=== PATIENT | female | born 1980 | race Two or more races ===

== ENCOUNTER 2020-06-08 01:18 | Emergency (ER) | payer MEDICAID ==
[2020-06-08] MEDS ORDERED: traMADol 50 MG Tab PO ONE (01:27)
[2020-06-08] MEDS ORDERED: Ketorolac 60 MG/2 ML SDV IM ONE (01:27)
--- NOTE | 2020-06-08 01:34 | EDM.PDOC ---
ED HPI GENERAL MEDICAL PROBLEM - General Stated Complaint: FALL-FOOT PAIN Time Seen by Provider: 06/08/20 01:20 Source of Information: Reports: Patient History Limitations: Reports: No Limitations - History of Present Illness INITIAL COMMENTS - FREE TEXT/NARRATIVE: Patient presented to the ED because of rt foot/ankle pain. She apparently slipped fell and twisted her foot and ankle. She c/o 8/10 pain that is worse with ambulation. - Related Data Home Meds: Home Meds Ibuprofen [Motrin] 800 mg PO Q8H PRN #30 tablet 06/08/20 [Rx] Review of Systems - Review of Systems Review Of Systems: See Below Constitutional: Reports: No Symptoms Ears: Reports: No Symptoms Nose: Reports: No Symptoms Mouth/Throat: Reports: No Symptoms Respiratory: Reports: No Symptoms Cardiovascular: Reports: No Symptoms GI/Abdominal: Reports: No Symptoms Genitourinary: Reports: No Symptoms Musculoskeletal: Reports: Foot Pain, Joint Pain, Joint Swelling Skin: Reports: No Symptoms Neurological: Reports: No Symptoms ED EXAM, GENERAL - Physical Exam Exam: See Below Exam Limited By: No Limitations General Appearance: Alert, No Apparent Distress Ears: Normal External Exam Nose: Normal Inspection, Normal Mucosa Throat/Mouth: Normal Inspection, Normal Lips Head: Atraumatic, Normocephalic Neck: Normal Inspection, Supple, Non-Tender, Full Range of Motion Respiratory/Chest: No Respiratory Distress, Lungs Clear, Normal Breath Sounds Cardiovascular: Normal Peripheral Pulses, Regular Rate, Rhythm, No Edema, No Gallop GI/Abdominal: Normal Bowel Sounds, Soft, Non-Tender Back Exam: Normal Inspection, Full Range of Motion Extremities: Joint Swelling, Limited Range of Motion, Other (tenderness and swelling rt ankle) Course - Vital Signs Text/Narrative:: xray RT foot and ankle-see result crutches provided Toradol 60 mg IM x1 Tramadol 100 mg PO x1 - Orders/Labs/Meds Orders: Active Orders 24 hr Category Date Time Status Ankle Min 3V Rt [CR] Stat Exams 06/08/20 01:26 Ordered Foot Comp Min 3V Rt [CR] Stat Exams 06/08/20 01:26 Ordered Meds: Medications Discontinued Medications Generic Name Dose Route Start Last Admin Trade Name Freq PRN Reason Stop Dose Admin Ketorolac Tromethamine 60 mg 06/08/20 01:27 Toradol IM 06/08/20 01:28 ONETIME ONE Tramadol HCl 100 mg 06/08/20 01:27 Ultram PO 06/08/20 01:28 ONETIME ONE Departure - Departure Time of Disposition: 15:00 Disposition: Home, Self-Care 01 Condition: Good Clinical Impression: Ankle sprain, Foot sprain - Discharge Information Prescriptions: Ibuprofen [Motrin] 800 mg PO Q8H PRN #30 tablet PRN Reason: Pain Instructions: Ankle Sprain, [id number], Foot Sprain Additional Instructions: Please read discharge instructions on foot and ankle sprain Apply ice Elevate Use your crutches at all times until your pain is gone Take ibuprofen 800 mg with tylenol 1000 mg every 8 hours as needed for pain We will call you if there is any changes on the xray reading - My Orders Last 24 Hours: My Active Orders 06/08/20 01:26 Ankle Min 3V Rt [CR] Stat Foot Comp Min 3V Rt [CR] Stat - Assessment/Plan Last 24 Hours: My Active Orders 06/08/20 01:26 Ankle Min 3V Rt [CR] Stat Foot Comp Min 3V Rt [CR] Stat
[2020-06-08] MEDS ORDERED: traMADol 50 MG Tab ONE (02:11)
--- NOTE | 2020-06-08 11:29 | CR ---
INDICATION: Right foot/ankle injury. RIGHT FOOT: Three views of the right foot were obtained 06/08/20 - no comparison. Mild degenerative changes are noted at the first metatarsophalangeal joint. Small posterior and plantar calcaneal spurs are noted. Calcifications are noted in the Achilles tendon and could represent calcific tendinitis - correlate clinically. A definite acute fracture or dislocation was not identified. Bone density appeared to be normal. There appears to be some soft tissue swelling at the level of the metatarsals dorsally. MTDD
--- NOTE | 2020-06-08 11:44 | CR ---
INDICATION: Stepped on toy and rolled ankle, pain in ankle and bottom of foot. RIGHT ANKLE: Three views of the right ankle were obtained 06/08/20 - no comparison. Soft tissue swelling is noted about the ankle, much more prominently medially. There are some minimal osteoarthritis type changes at the ankle mortise with the joint space appearing slightly narrowed laterally. This could be on the basis of arthritis, although some instability of the ankle due to ligamental injury medially would be a consideration also. This should be correlated clinically. Stress views or possibly MRI of the ankle may be helpful for further evaluation in that regard. Again noted are calcifications in the area of the Achilles tendon with small posterior and plantar calcaneal spurs present. A definite acute fracture site or dislocation was not identified. IMPRESSION: 1. Soft tissue swelling and slight asymmetry of the ankle mortise joint space - widened medially raising question of medial ligamental injury - strain - correlate clinically. 2. Calcifications in the Achilles tendon could present calcific tendinitis in that area. 3. Calcaneal spurs. 4. 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 [facility]
== END 2020-06-08 02:15 | disposition home or self-care (01) ==
LOC: FB.ED 01:18
DX: S93.401A Sprain of unspecified ligament of right ankle, initial encounter (principal); S93.601A Unspecified sprain of right foot, initial encounter; X50.1XXA Overexertion from prolonged static or awkward postures, initial encounter
CPT/HCPCS: 73610; 73630; 96372; 99283; A9270; J1885

== ENCOUNTER 2023-09-19 23:09 | Emergency (ER) | payer MEDICAID ==
[2023-09-19] MEDS ORDERED: Sodium Chloride 0.9% 10 ML Syringe FLUSH PRN (23:10)
[2023-09-19 23:40] LABS: BASOPHILS PERCENT AUTO 0.4 % (0.2-1.5); EOSINOPHILS ABSOLUTE AUTO 0.1 x10-3/uL (0.0-0.8); HEMATOCRIT 38.3 % (34.2-48.2); HEMOGLOBIN 12.6 g/dL (11.4-15.5); LYMPHOCYTES ABSOLUTE AUTO 1.6 x10-3/uL (1.0-4.4); LYMPHOCYTES PERCENT AUTO 20.8 % (18.4-52.1); MEAN CORPUSCULAR HEMOGLOBIN 28.4 pg (23.9-33.9); MEAN CORPUSCULAR HGB CONC 32.9 g/dL (31.9-34.8); MEAN CORPUSCULAR VOLUME 86.4 fL (76.7-100.5); MEAN PLATELET VOLUME 8.2 fL (7.1-12.4); MONOCYTES ABSOLUTE AUTO 0.5 x10-3/uL (0.3-1.0); MONOCYTES PERCENT AUTO 7.1 % (4.4-15.7); NEUTROPHILS ABSOLUTE AUTO 5.2 x10-3/uL (1.5-6.3); NEUTROPHILS PERCENT AUTO 69.7 % (30.8-76.2); PLATELET COUNT,PLT 243 x10(3)uL (151-488); RED BLOOD CELL COUNT 4.44 x10(6)uL (3.60-5.20); RED CELL DISTRIBUTION WIDTH 15.2 % (12.3-16.5); WHITE BLOOD CELL COUNT,WBC 7.5 x10-3/uL (3.0-10.3)
[2023-09-19 23:43] LABS: BLOOD UREA NITROGEN,BUN 12 mg/dL (7-18); BUN/CREATININE RATIO 17.1 (9-20); CALCIUM 9.4 mg/dL (8.6-10.2); CARBON DIOXIDE,CO2 28 mmol/L (21-32); CHLORIDE,CL 102 mmol/L (100-110); CREATININE 0.7 mg/dL (0.55-1.02); EST CRCL DRUG DOSING (CG) 100.77 mL/min; ESTIMATED GFR 110 mL/min (>60); GLUCOSE RANDOM 114 mg/dL (80-116); POTASSIUM,K 3.8 mmol/L (3.5-5.3); SODIUM,NA 138 mmol/L (135-145)
[2023-09-19] MEDS: SODIUM CHLORIDE 0.9% IV ONE (23:46)
[2023-09-19] MEDS: LEVETIRACETAM IV ONE (23:46)
[2023-09-19 23:49] LABS: A/G RATIO 0.8; ALANINE AMINOTRANSFERASE,ALT 29 U/L (12-36); ALBUMIN 3.2 g/dL (3.5-5.2); ALKALINE PHOSPHATASE 72 IU/L (56-112); ASPARTATE AMNIOTRANSFERASE,AST 20 IU/L (5-25); BILIRUBIN TOTAL 0.6 mg/dL (0.1-1.3); PROTEIN TOTAL,TP 7.4 g/dL (6.0-8.0)
[2023-09-19 23:56] LABS: TSH ULTRASENSITIVE 5.05 IU/mL (0.36-3.74)
[2023-09-19 23:57] LABS: ETHANOL BLOOD MEDICAL < 0.03 % (<0.03)
[2023-09-20] MEDS: Morphine 4 MG/ML VIAL IVPUSH ONE (01:11)
[2023-09-20] MEDS: Ondansetron 4 MG/2 ML SDV IVPUSH ONE (01:12)
[2023-09-20 01:13] LABS: AMPHETAMINES SCREEN, URINE NEGATIVE (NEGATIVE); BARBITURATE SCREEN,URINE NEGATIVE (NEGATIVE); BENZODIAZEPINES SCREEN,URINE NEGATIVE (NEGATIVE); BUPRENORPHINE SCREEN,URINE NEGATIVE (NEGATIVE); METHADONE SCREEN, URINE NEGATIVE (NEGATIVE); METHAMPHETAMINE SCREEN, URINE NEGATIVE (NEGATIVE); OXYCODONE SCREEN,URINE NEGATIVE (NEGATIVE); THC SCREEN,URINE NEGATIVE (NEGATIVE)
[2023-09-20] MEDS ORDERED: Morphine 4 MG/ML VIAL IVPUSH PRN (05:04)
[2023-09-20] MEDS: levETIRAcetam in NaCl (iso-os) 1,000 MG in Premix Bag 1 BAG IV ONE (09:02)
[2023-09-20] MEDS: Acetaminophen/oxyCODONE 325-5 MG Tab PO PRN (09:17)
[2023-09-20] MEDS: Ondansetron 8 MG Tab.DIS PO ONE (11:19)
[2023-09-20] MEDS: Iopamidol 755 Mg/ML 100 ML Bottle IV SCH (14:32)
== END 2023-09-20 16:08 | disposition home or self-care (01) ==
LOC: FB.ED 23:09
DX: R56.9 Unspecified convulsions (principal); N83.202 Unspecified ovarian cyst, left side; R51.9 Headache, unspecified; M79.10 Myalgia, unspecified site; Z87.891 Personal history of nicotine dependence; Z79.899 Other long term (current) drug therapy; W01.198A Fall on same level from slipping, tripping and stumbling with subsequent striking against other object, initial encounter
CPT/HCPCS: 36415; 70450; 71045; 71275; 72125; 72128; 72131; 72192; 73030; 80053; 80307; 84443; 85025; 85379; 96365; 96366; 96375; 99284; 99285; A9270; J1953; J2270; J2405; J3490; Q9967

== ENCOUNTER 2023-10-24 08:18 | Emergency (ER) | payer OTHER, MEDICAID ==
[2023-10-24] MEDS: Ondansetron 4 MG/2 ML SDV IVPUSH ONE ×2 (08:46→10:03)
[2023-10-24] MEDS: HYDROmorphone 2 MG/ML SDV IVPUSH ONE ×2 (08:47→11:26)
[2023-10-24 09:01] LABS: BASOPHILS PERCENT AUTO 0.2 % (0.2-1.5); EOSINOPHILS ABSOLUTE AUTO 0.1 x10-3/uL (0.0-0.8); EOSINOPHILS PERCENT AUTO 0.8 % (0.6-8.1); HEMATOCRIT 39.9 % (34.2-48.2); HEMOGLOBIN 13.2 g/dL (11.4-15.5); LYMPHOCYTES ABSOLUTE AUTO 1.6 x10-3/uL (1.0-4.4); LYMPHOCYTES PERCENT AUTO 15.7 % (18.4-52.1); MEAN CORPUSCULAR HEMOGLOBIN 29.3 pg (23.9-33.9); MEAN CORPUSCULAR HGB CONC 33.1 g/dL (31.9-34.8); MEAN CORPUSCULAR VOLUME 88.5 fL (76.7-100.5); MEAN PLATELET VOLUME 8.3 fL (7.1-12.4); MONOCYTES ABSOLUTE AUTO 0.4 x10-3/uL (0.3-1.0); MONOCYTES PERCENT AUTO 3.6 % (4.4-15.7); NEUTROPHILS ABSOLUTE AUTO 8.2 x10-3/uL (1.5-6.3); NEUTROPHILS PERCENT AUTO 79.7 % (30.8-76.2); PLATELET COUNT,PLT 197 x10(3)uL (151-488); RED BLOOD CELL COUNT 4.51 x10(6)uL (3.60-5.20); RED CELL DISTRIBUTION WIDTH 15.7 % (12.3-16.5); WHITE BLOOD CELL COUNT,WBC 10.3 x10-3/uL (3.0-10.3)
[2023-10-24 09:06] LABS: BLOOD UREA NITROGEN,BUN 16 mg/dL (7-18); BUN/CREATININE RATIO 26.7 (9-20); CALCIUM 9.5 mg/dL (8.6-10.2); CARBON DIOXIDE,CO2 25 mmol/L (21-32); CHLORIDE,CL 102 mmol/L (100-110); CREATININE 0.6 mg/dL (0.55-1.02); EST CRCL DRUG DOSING (CG) 113.18 mL/min; ESTIMATED GFR 114 mL/min (>60); GLUCOSE RANDOM 113 mg/dL (80-116); SODIUM,NA 138 mmol/L (135-145)
[2023-10-24 09:10] LABS: C-REACTIVE PROTEIN 2.25 mg/dL (<0.50)
[2023-10-24 09:12] LABS: A/G RATIO 0.7; ALANINE AMINOTRANSFERASE,ALT 46 U/L (12-36); ALBUMIN 3.2 g/dL (3.5-5.2); ALKALINE PHOSPHATASE 91 IU/L (56-112); ASPARTATE AMNIOTRANSFERASE,AST 40 IU/L (5-25); BILIRUBIN TOTAL 0.9 mg/dL (0.1-1.3); PROTEIN TOTAL,TP 7.7 g/dL (6.0-8.0)
[2023-10-24 09:20] LABS: ETHANOL BLOOD MEDICAL < 0.03 % (<0.03)
[2023-10-24] MEDS: Iopamidol 755 Mg/ML 200 ML Bottle IV ONE (10:03)
[2023-10-24 11:04] LABS: BILIRUBIN,URINE NEGATIVE (NEGATIVE); GLUCOSE,URINE NORMAL (NORMAL); KETONES,URINE 15 mg/dL (NEGATIVE); LEUKOCYTE ESTERASE,URINE NEGATIVE (NEGATIVE); NITRITE,URINE NEGATIVE (NEGATIVE); OCCULT BLOOD,URINE MODERATE (NEGATIVE); PROTEIN,URINE 30 mg/dL (NEGATIVE); UROBILINOGEN,URINE NORMAL (NEGATIVE)
[2023-10-24 11:10] LABS: APPEARANCE,URINE CLEAR (CLEAR); COLOR,URINE YELLOW (YELLOW)
[2023-10-24 11:11] LABS: BACTERIA,URINE FEW (NS); RBC,URINE 0-5 (0-5); SQUAMOUS EPITHELIAL CELLS,UR OCCASIONAL (NS,R,O); WBC,URINE 0-5 (0-5)
[2023-10-24] MEDS: levETIRAcetam in NaCl (iso-os) 1,000 MG in Premix Bag 1 BAG IV ONE (11:11)
[2023-10-24] MEDS: Sodium Chloride 0.9% 1,000 ML IV ONE (11:11)
[2023-10-26 08:57] LABS: KEPPRA (LEVETIRACETAM) <2 ug/mL (10-40)
== END 2023-10-24 12:00 ==
LOC: FB.ED 08:18
DX: S22.41XA Multiple fractures of ribs, right side, initial encounter for closed fracture (principal); S93.04XA Dislocation of right ankle joint, initial encounter; S27.321A Contusion of lung, unilateral, initial encounter; N83.9 Noninflammatory disorder of ovary, fallopian tube and broad ligament, unspecified; E87.20 Acidosis, unspecified; E88.09 Other disorders of plasma-protein metabolism, not elsewhere classified; R74.01 Elevation of levels of liver transaminase levels; E66.9 Obesity, unspecified; Z79.899 Other long term (current) drug therapy; Z68.42 Body mass index [BMI] 45.0-49.9, adult
CPT/HCPCS: 36415; 51702; 70450; 71260; 72125; 73610; 74177; 80053; 80177; 80307; 81001; 83605; 83735; 84484; 85025; 86140; 87040; 93005; 96365; 96375; 96376; 99285; J1170; J1953; J2405; J7030; Q9967; 93010

== ENCOUNTER 2023-10-30 07:41 | Inpatient (IN) | payer OTHER, MEDICAID ==
[2023-10-30] MEDS ORDERED: Albuterol 6.7 GM Inhaler INH PRN (15:10)
[2023-10-30] MEDS ORDERED: Ondansetron 4 MG Tab.DIS PO PRN (15:10)
[2023-10-30] MEDS: oxyCODONE 5 MG Tab PO PRN (15:34)
[2023-10-30] MEDS: Cyclobenzaprine 10 MG Tab PO PRN (15:44)
[2023-10-30] MEDS: Sennosides/Docusate Sodium 50-8.6 MG Tab PO SCH (20:49)
[2023-10-30] MEDS: levETIRAcetam 250 MG Tab PO SCH (20:50)
[2023-10-30] MEDS: Enoxaparin 40 MG/0.4 ML Syringe SUBCUT SCH (20:50)
[2023-10-30] MEDS: LIDOCAINE PATCH TRDERM SCH (20:51)
[2023-10-30] MEDS: Gabapentin 400 MG Cap PO SCH (20:58)
[2023-10-31] MEDS: Pantoprazole 40 MG Tab.CR PO SCH (03:36)
[2023-10-31] MEDS: Lidocaine 4% 1 each Patch TOP SCH (08:39)
[2023-10-31] MEDS: Polyethylene Glycol 3350 Powder 17 GM Packet PO SCH (08:41)
[2023-10-31] MEDS: DULoxetine 60 MG Cap PO SCH (08:41)
[2023-10-31] MEDS: Multivitamin Tab PO SCH (08:48)
[2023-10-31] MEDS: Acetaminophen 325 MG Tab PO PRN (11:24)
[2023-10-31] MEDS: CALCIUM CITRATE PO SCH (12:41)
[2023-10-31] MEDS: oxyCODONE 5 MG Tab PO PRN (13:58)
[2023-11-01] MEDS: IRON PO SCH (09:17)
[2023-11-01] MEDS: MULTIVITAMIN PO SCH (09:17)
== END 2023-11-06 18:29 | disposition home or self-care (01) | DRG 560 ==
LOC: FB.MS 13:25
PROVIDERS: ADMIT Family Medicine; ATTEND Internal Medicine
DX: Z47.89 Encounter for other orthopedic aftercare (principal); J90 Pleural effusion, not elsewhere classified; S82.891D Other fracture of right lower leg, subsequent encounter for closed fracture with routine healing; S22.41XD Multiple fractures of ribs, right side, subsequent encounter for fracture with routine healing; G40.909 Epilepsy, unspecified, not intractable, without status epilepticus; J45.909 Unspecified asthma, uncomplicated; M19.90 Unspecified osteoarthritis, unspecified site; N83.8 Other noninflammatory disorders of ovary, fallopian tube and broad ligament; E66.01 Morbid (severe) obesity due to excess calories; G47.33 Obstructive sleep apnea (adult) (pediatric); F32.A Depression, unspecified; R22.1 Localized swelling, mass and lump, neck; Z88.8 Allergy status to other drugs, medicaments and biological substances; Z79.51 Long term (current) use of inhaled steroids; Z79.01 Long term (current) use of anticoagulants; Z79.899 Other long term (current) drug therapy; Z87.01 Personal history of pneumonia (recurrent); Z86.16 Personal history of COVID-19; Z98.890 Other specified postprocedural states; Z98.84 Bariatric surgery status; Z90.49 Acquired absence of other specified parts of digestive tract; Z90.710 Acquired absence of both cervix and uterus; V89.2XXD Person injured in unspecified motor-vehicle accident, traffic, subsequent encounter; Z68.31 Body mass index [BMI] 31.0-31.9, adult; Z90.721 Acquired absence of ovaries, unilateral
CPT/HCPCS: 94150; 97110-GP; 97161-GP; 97165-GO; 97530-GO; 97530-GP; 97542-GO; 99305; 99308; 99315; A9270-GY; J1650